=== PATIENT | female | born 1995 | race Two or more races ===

== ENCOUNTER 2019-03-01 16:47 | Emergency (ER) | payer SELFPAY ==
[~2019-03-01] VITALS: Ht 149.9 cm; Wt 49.0 kg
[2019-03-01] MEDS ORDERED: ONDANSETRON 4 MG TAB.RAPDIS ONE (17:49)
[2019-03-01] MEDS ORDERED: ACETAMINOPHEN 325 MG TABLET ONE (17:49)
[2019-03-01] MEDS ORDERED: ONDANSETRON 4 MG TAB.RAPDIS SL ONE (18:00)
[2019-03-01] MEDS ORDERED: ACETAMINOPHEN 325 MG TABLET PO ONE (18:00)
[2019-03-01 18:05] LABS: APPEARANCE,URINE Clear (CLEAR); BILIRUBIN,URINE Negative (NEGATIVE); BLOOD, URINE Negative Ery/uL (NEGATIVE); COLOR,URINE Yellow (YELLOW); KETONES,URINE 80 (NEGATIVE); LEUKOCYTE ESTERASE ,URINE Negative (NEGATIVE); NITRITE, URINE Negative (NEGATIVE); PROTEIN,URINE Negative (NEGATIVE); UGLUCOSE Negative (NEGATIVE); UROBILINOGEN,URINE 0.2 EU/dL (0.2)
[2019-03-01 18:13] LABS: RBC,URINE 0-2 /HPF (0-2); WBC,URINE 0-2 /HPF (0-3)
[2019-03-01 18:14] LABS: BACTERIA,URINE Few /HPF (None Seen); SQUAMOUS EPITHELIAL CELL,UR Few /HPF (None Seen)
--- NOTE | 2019-03-01 19:04 | NUR ---
pt seen and evaluated by ed provider. discharge home in stable condition.
--- NOTE | 2019-03-01 19:05 | NUR ---
Patient discharged to home in stable condition. Written and verbal after care instructions given. Patient verbalizes understanding of instruction.
[2019-03-01 19:06] VITALS: BP 134/78
== END 2019-03-01 19:06 | disposition home or self-care (01) ==
LOC: ER 16:58
DX: S01.01XA Laceration without foreign body of scalp, initial encounter (principal); S09.8XXA Other specified injuries of head, initial encounter; R11.2 Nausea with vomiting, unspecified; R51 Headache; J45.909 Unspecified asthma, uncomplicated; Z90.89 Acquired absence of other organs; W22.8XXA Striking against or struck by other objects, initial encounter; Y93.89 Activity, other specified; Y92.89 Other specified places as the place of occurrence of the external cause; Y99.0 Civilian activity done for income or pay
CPT/HCPCS: 70450; 81001; 84703; 99284; Q0162; 81000-TC